=== PATIENT | male | born 1975 | race Two or more races ===

== ENCOUNTER 2024-10-23 11:13 | Inpatient (IN) | payer OTHER ==
[~2024-10-23] VITALS: Ht 167.6 cm; Wt 67.0 kg
--- NOTE | 2024-10-23 11:30 | ED.PDOC ---
GI ASSESSMENT HPI Comments This is a 49 year old male presenting to the ED with chief complaint of hernia pain. Patient reports that he has been experiencing worsening pain and swelling to a hernia he has in his right groin. Patient relays that it has become hard recently over the past few days. Patient notes he has no PCP at this time. Patient denies any dysuria, hematuria, N/V/D, fever, or chills. Time Seen by MD: 11:29 Reviewed Notes: Nurses Notes, Medications, Allergies Allergies: Coded Allergies: NO KNOWN ALLERGIES (Unverified , 10/23/24) Information Source: Patient Mode of Arrival: Ambulatory Timing: Days Duration: Intermittent Prehospital treatment: None Quality: Sharp Vomitus: None Stool: Normal Severity: Moderate Recent: None Recent Hx of: None Pain Location: None Modifying Factors: Nothing Associated sign and symptoms: Abdominal Pain Past Medical History Past Medical History (Other): Rt inguinal hernia Surgical History: Denies all surgeries Family History Family History: Reviewed,noncontributory to illness Social History Smoker: Cigarettes Alcohol: Denies ETOH Use Drugs: Denies Drug Use Lives In: Home Constitutional: denies: chills, diaphoresis, fatigue, fever, malaise, sweats, weakness, others EENTM: denies: blurred vision, double vision, ear bleeding, ear discharge, ear drainage, ear pain, ear ringing, eye pain, eye redness, hearing loss, mouth pain, mouth swelling, nasal discharge, nose bleeding, nose congestion, nose pain, photophobia, tearing, throat pain, throat swelling, voice changes, others Respiratory: denies: cough, hemoptysis, orthopnea, SOB at rest, shortness of breath, SOB with excertion, stridor, wheezing, others Cardiovascular: denies: chest pain, dizzy spells, diaphoresis, Dyspnea on exertion, edema, irregular heart beat, left arm pain, lightheadedness, palpitations, PND, syncope, others Gastrointestinal: reports: abdominal pain; denies: abdomen distended, blood streaked bowels, constipated, diarrhea, dysphagia, difficulty swallowing, hematemesis, melena, nausea, poor appetite, poor fluid intake, rectal bleeding, rectal pain, vomiting, others Genitourinary: denies: burning, dysuria, flank pain, frequency, hematuria, incontinence, penile discharge, penile sore, pain, testicle pain, testicle swelling, urgency, others Neurological: denies: dizziness, fainting, headache, left sided numbness, left sided weakness, numbness, paresthesia, pre-existing deficit, right sided numb ness, right sided weakness, seizure, speech problems, tingling, tremors, weakness, others Musculoskeletal: denies: back pain, gout, joint pain, joint swelling, muscle pain, muscle stiffness, neck pain, others Integumetry: denies: bruises, change in color, change in hair/nails, dryness, laceration, lesions, lumps, rash, wounds, others Allergic/Immunocompromised: denies: Difficulty Healing, Frequent Infections, Hives, Itching, others Hematologic/Lymphatic: denies: anemia, blood clots, easy bleeding, easy bruising, swollen glands, others Endocrine: denies: excessive hunger, excessive sweating, excessive thirst, excessive urination, flushing, intolerance to cold, intolerance to heat, unexplained weight gain, unexplained weight loss, others Psychiatric: denies: anxiety, bipolar disorder, depression, hopeless, panic disorder, schizophrenia, sleepless, suicidal, others All Other Systems: Reviewed and Negative Physical Exam General Appearance: Moderate Distress, Normal HEENT: Normal ENT Inspection, Pharynx Normal, TMs Normal Neck: Full Range of Motion, Non-Tender, Normal, Normal Inspection Respiratory: Chest Non-Tender, Lungs Clear, No Accessory Muscle Use, No Respiratory Distress, Normal Breath Sounds Cardiovascular: No Edema, No JVD, No Murmur, No Gallop, Normal Peripheral Pulses, Regular Rate/Rhythm Breast Exam: Deferred Gastrointestinal: No Organomegaly, Non Tender, No Pulsatile Mass, Normal Bowel Sounds, Soft Genitalia: Other (Right inguinal hernia possible strangulation) Pelvic: Deferred Rectal: Deferred Extremities: No calf tenderness, Normal capillary refill, Normal inspection, Normal range of motion, Non-tender, No pedal edema Musculoskeletal : Apperance: Normal Neurologic: Alert, 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 Was a procedure done?: No GI differential Dx Differential Diagnosis: Constipation, Diverticular disease, Esophagitis, Gastritis/PUD, Gastroenteritis, Hernia X-Ray, Labs, Meds, VS Vital Signs Date Time Temp Pulse Resp B/P (MAP) Pulse Ox O2 Delivery O2 Flow Rate FiO2 10/23/24 12:05 97.7 108 18 123/82 (96) [address] Abd/Pel: FINDINGS: There is limited interpretation of the abdomen and pelvis without administration of intravenous contrast. Lung bases demonstrate atelectasis. Adrenal glands, spleen, pancreas and liver unremarkable in shape. No CT evidence for cholelithiasis. No hydronephrosis / nephrolithiasis. Stomach partially distended. Moderate volume stool in the colon. There is a right inguinal region hernia containing bowel that is abnormally dilated with Fecal like contents measuring 9.7 x 6.1 cm. This likely represents the cecum/terminal ileum. There is bowel wall thickening with surrounding edema in the right inguinal hernia. The neck of the hernia measures 1.8 cm. There is free fluid in the right abdomen/ right paracolic gutter. The appendix is not well characterized. Bladder contracted. No inguinal lymphadenopathy. Mild bilateral sacroiliac degenerative joint disease. No aggressive osseous process. [id number] thoracolumbar degenerative disc disease. Thoracolumbar levocurvature. IMPRESSION: Limited evaluation without contrast. Right inguinal hernia containing a trapped segment of bowel measuring 9.7 x 6.1 cm , highly concerning for incarceration/strangulation. Recommend surgical consultation for further evaluation and management. Free fluid within the right abdomen/paracolic gutter, likely reactive to the secondary right inguinal hernia. Other findings as described. Patient alert. Complaining of right inguinal swelling. On examination suspected strangulation of inguinal hernia. Vitals stable. CT scan reviewed concerning for strangulation of inguinal hernia. Ambulating. Has not been taking care of himself. Establish intravenous access. Was given fluids. Was given Rocephin. Was given Flagyl. Explained to the patient. Continue monitoring. Images Reviewed?: Images reviewed and evaluated by me Time of 1ST Reevaluation: 12:28 Reevaluation 1ST: Unchanged Patient Education/Counseling: Diagnosis, Treatment Family Education/Counseling: No Family Present Additional Information Previous visits reviewed: None The following tests were ordered, and results were reviewed by me: CT Abd/Pel Additional Information was gathered from interviewing the following independent historians: None I reviewed and agreed with the following test results read by other providers: CT Abd/Pel I discussed treatment and results with medical personnel and: patient Comprehensive systems review obtained and negative except for what is stated in the HPI. SEPSIS Sepsis Screen Physician Orders Ct Ab Pel Wo Con-No Oral Or Iv (10/23/24 11:27) Complete Blood Count (10/23/24 13:29) Urinalysis (10/23/24 13:29) PTPTT (10/23/24 13:29) Basic Metabolic Panel (10/23/24 13:29) Ceftriaxone Ivpb Rocephin (10/23/24 13:30) Metronidazole Ivpb Flagyl (10/23/24 13:30) 1 Liter Bolus Of 0.9% Ns (10/23/24 13:30) 0.9% Ns 30mls/Kg (10/23/24 13:30) * Surgical Consult (10/23/24 ) Vital Signs Date Time Temp Pulse Resp B/P (MAP) Pulse Ox O2 Delivery O2 Flow Rate FiO2 10/23/24 12:05 97.7 108 18 123/82 (96) 99 97.7 Departure 1 Departure Time of Disposition: 13:33 Impression: Primary Impression: Acute abdominal pain Additional Impression: Strangulated internal hernia Disposition: ADMITTED INPATIENT Admit to: Med Surg Condition: Guarded Critical Care Note Critical Care Time?: No Stability Stability form required: No Heart Score Heart Score: Heart Score Response (Comments) Value History N/A 0 EKG N/A 0 Age N/A 0 Risk Factors N/A 0 Troponin N/A 0 Total 0 I personally scribed for JOCELYN MARTINEZ MD ([email or web address]) on 10/23/24 at 11:30. Electronically submitted by Bashir Bran ([email or web address]). I personally scribed for JOCELYN MARTINEZ MD ([email or web address]) on 10/23/24 at 13:30. Electronically submitted by Bashir Bran ([email or web address]). JOCELYN MARTINEZ MD Oct 23, 2024 11:30
--- NOTE | 2024-10-23 12:04 | DVH ---
Indication: hernia Technique: CT axial images of the abdomen and pelvis are obtained without contrast. Coronal and sagit reed reformats were obtained. Radiation Dose Information: CTDI volume is 5.2 mGy. Dose-length product is 271 mGy*cm Comparison: None FINDINGS: There is limited interpretation of the abdomen and pelvis without administration of intravenous contr ast. Lung bases demonstrate atelectasis. Adrenal glands, spleen, pancreas and liver unremarkable in shape. No CT evidence for cholelithiasis. No hydronephrosis / nephrolithiasis. Stomach partially distended. Moderate volume stool in the colon. There is a right inguinal region hernia containing bowel that is abnormally dilated with Fecal like contents measuring 9.7 x 6.1 cm. This likely represents the cecum/ terminal ileum. There is bowel wall thickening with surrounding edema in the right inguinal hernia. The neck of the hernia measures 1.8 cm. There is free fluid in the right abdomen/ right paracolic gut ter. The appendix is not well characterized. Bladder contracted. No inguinal lymphadenopathy. Mild bilateral sacroiliac degenerative joint disease. No aggressive osseous process. [id number] thoracolumbar degenerative disc disease. Thoracolumbar levocurvature. IMPRESSION: Limited evaluation without contrast. Right inguinal hernia containing a trapped segment of bowel measuring 9.7 x 6.1 cm , highly concernin g for incarceration/strangulation. Recommend surgical consultation for further evaluation and manage ment. Free fluid within the right abdomen/paracolic gutter, likely reactive to the secondary right inguinal hernia. Other findings as described.
[2024-10-23] MEDS ORDERED: SODIUM CHLORIDE 0.9% 1,000 ML IV ONE (13:30)
[2024-10-23] MEDS: SODIUM CHLORIDE 0.9% 1,000 ML IV ONE (13:30)
[2024-10-23 14:10] LABS: Hematocrit 43.0 % (41.0-53.0); Hemoglobin 14.4 g/dL (13.5-17.5); Mean Corpuscular Hemoglobin 28.6 pg (28.0-32.0); Mean Corpuscular Volume 85.4 fL (80.0-100.0); Nucleated Red Blood Cells % 0.0 %
[2024-10-23 14:21] LABS: Chloride 103 mmol/L (98-107); Potassium 4.2 mmol/L (3.5-5.1); Sodium 140 mmol/L (136-145)
[2024-10-23 14:22] LABS: Anion Gap 7 (5-15); Carbon Dioxide 30 mmol/L (20-31)
[2024-10-23 14:23] LABS: Calcium 10.1 mg/dL (8.7-10.4)
[2024-10-23 14:24] LABS: INR 0.97 (0.9-1.15); Partial Thromboplastin Time 29.5 SEC (24.5-34.5); Prothrombin Time 10.3 sec (9.3-11.8)
[2024-10-23 14:28] LABS: BUN/Creatinine Ratio 21.3 (10.0-20.0); Blood Urea Nitrogen 20 mg/dL (9-23); Glucose 125 mg/dL (74-106)
[2024-10-23] MEDS: cefTRIAXone 1GM/50ML D5W 50 ML IV ONE (15:28)
[2024-10-23] MEDS: ONDANSETRON HCL 4 MG/2 ML VIAL IV ONE (15:28)
[2024-10-23] MEDS: MORPHINE SULFATE 4 MG/ML SYR/VIAL IV ONE (15:29)
[2024-10-23] MEDS ORDERED: ONDANSETRON HCL 4 MG/2 ML VIAL IV PRN (16:00)
[2024-10-23] MEDS ORDERED: ACETAMINOPHEN 325 MG TAB PO PRN (16:00)
[2024-10-23] MEDS ORDERED: D5W/SOD CHL 0.45% 1,000 ML IV ONE (16:00)
[2024-10-23] MEDS ORDERED: SOD CHL 0.45% 1,000 ML IV SCH (16:00)
[2024-10-23 16:12] LABS: Urine Protein, UAD TRACE (Negative)
[2024-10-23 16:14] LABS: Triglycerides 64 mg/dL (< 150)
[2024-10-23 16:15] LABS: Cholesterol 162 mg/dL (< 200); HDL Cholesterol 48 mg/dL (40-59)
[2024-10-23 16:16] LABS: Alanine Aminotransferase 13 U/L (7-40); Albumin 4.6 g/dL (3.2-4.8); Alkaline Phosphatase 69 U/L (46-116); Bilirubin, Direct < 0.1 mg/dL (<0.3)
--- NOTE | 2024-10-23 16:18 | DVHHPRES ---
History of Present Illness Resident Creating Document: KENDALL JAUREGUI History of Present Illness This is a 49-year-old male with no significant past medical history of relevance, only polysubstance abuse. The patient presented to the ED with chief complaint of acute abdominal pain and right inguinal pain. The patient reports having a right inguinal hernia since seven months back but that was reducible and not painful at all. The patient states that recently one day before coming to the ED he started feeling that the right inguinal hernia was not able to come in back to the abdomen (not reducible) and was significantly tender compared to previous days. The patient also reported redness and slightly warm sensation to the touch around the location of the hernia. The patient denies fever/chills, chest pain, shortness of breath or any other associated symptoms. Initial labs showed a slight leukocytosis with unremarkable BNP. We ordered urinalysis, UDS, EKG and surgical consultation. We will admit the patient for further assessment and management of incarcerated right inguinal hernia. 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 Past Surgical History: None Family History: None Smoke: <1 pack per day ALCOHOL: occassional Drugs: Cocaine, Marijuana Lives: with Family Domestic Violence: Neg Review of Systems Constitutional: No: Fever, Chills, Sweats, Weakness, Malaise, Other Eyes: No: Pain, Vision change, Conjunctivae inflammation, Eyelid inflammation, Other, Redness ENT: No: Ear pain, Ear discharge, Nose pain, Nose discharge, Nose congestion, Mouth pain, Mouth swelling, Throat pain, Throat swelling, Other Respiratory: No: Cough, Dry, Shortness of breath, SOB with excertion, Wheezing, Hemoptysis, Pleuritic Pain, Sputum, Wheezing, Other Cardiovascular: No: Chest Pain, Palpitations, Orthopnea, Paroxysmal Noc. Dyspnea, Edema, Lt Headedness, Other Gastrointestinal: Abdominal Pain, Other (Right inguinal pain.); No: Nausea, Vomiting, Diarrhea, Constipation, Melena, Hematochezia Genitourinary: No Dysuria, No Frequency, No Incontinence, No Hematuria, No Retention, No Other Musculoskeletal: No: other, neck pain, shoulder pain, arm pain, back pain, hand pain, leg pain, foot pain Skin: No: Rash, Lesions, Jaundice, Bruising, Other Neurological: No: Weakness, Numbness, Incoordination, Change in speech, Confusion, Seizures, Other Allergies: Coded Allergies: NO KNOWN ALLERGIES (Unverified , 10/23/24) Medications Current Medications Medications Dose Ordered Sig/Abilio Route Start Time Stop Time Status Last Admin Dose Admin Acetaminophen 650 mg Q6HP PRN PO 10/23/24 16:00 UNV Sodium Chloride 1,000 ml @ 75 mls/hr [id number] IV 10/23/24 16:00 UNV Acetaminophen/ Hydrocodone Bitart 1 tab Q4HP PRN PO 10/23/24 16:00 UNV Ondansetron HCl 4 mg Q4HP PRN IV 10/23/24 16:00 UNV Morphine Sulfate 1 mg Q4HPRN PRN IV 10/23/24 16:00 UNV Exam Vital Signs Vital Signs Date Time Temp Pulse Resp B/P (MAP) Pulse Ox O2 Delivery O2 Flow Rate FiO2 10/23/24 15:29 94 17 118/89 10/23/24 14:41 99 Room Air 10/23/24 14:39 97.9 97.9 General Appearance: Alert, Oriented X3, Cooperative, mild distress HEENT: Atraumatic, PERRLA, EOMI, Mucous membr. moist/pink Respiratory: Clear to auscultation, Normal air movement Cardiovascular: Regular rate, Normal S1, Normal S2, No murmurs Abdominal: Normal bowel sounds, Other (Tender to palpation in the right lower quadrant, hypogastric region and right inguinal area. There was an incarcerated right inguinal hernia extending to the scrotum with mild erythema and warm sensation to the touch.) Extremities: No clubbing, No cyanosis Skin: No rashes, No breakdown, No significant lesion Neuro: Normal gait, Normal speech, Strength at 5/5 X4 ext, Normal tone, Sensation intact, Cranial nerves 3-12 NL, Reflexes 2+ Psych/Mental Status: Mental status NL, Mood NL Labs/Xrays Labs Test 10/23/24 13:52 Range/Units White Blood Count 10.6 4.4-10.8 10^3/uL Red Blood Count 5.04 4.5-5.90 10^6/uL Hemoglobin 14.4 13.5-17.5 g/dL Hematocrit 43.0 41.0-53.0 % Mean Corpuscular Volume 85.4 80.0-100.0 fL Mean Corpuscular Hemoglobin 28.6 28.0-32.0 pg Mean Corpuscular Hemoglobin Concent 33.5 32.0-36.0 g/dL Red Cell Distribution Width 14.9 H 11.8-14.3 % Platelet Count 326 140-450 10^3/uL Mean Platelet Volume 7.1 6.9-10.8 fL Neutrophils (%) (Auto) 75.3 37.0-80.0 % Lymphocytes (%) (Auto) 17.2 10.0-50.0 % Monocytes (%) (Auto) 6.3 0.0-12.0 % Eosinophils (%) (Auto) 0.9 0.0-7.0 % Basophils (%) (Auto) 0.3 0.0-2.0 % Neutrophils # (Auto) 8.0 1.6-8.6 10 ^3/uL Lymphocytes # (Auto) 1.8 0.4-5.4 10 ^3/uL Monocytes # (Auto) 0.7 0-1.3 10 ^3/uL Eosinophils # (Auto) 0.1 0-0.8 10 ^3/uL Basophils # (Auto) 0 0-0.2 10 ^3/uL Nucleated Red Blood Cells 0.0 % Prothrombin Time 10.3 9.3-11.8 sec Prothrombin Time INR 0.97 0.9-1.15 Activated Partial Thromboplast Time 29.5 24.5-34.5 SEC Sodium Level 140 136-145 mmol/L Potassium Level 4.2 3.5-5.1 mmol/L Chloride Level 103 98-107 mmol/L Carbon Dioxide Level 30 20-31 mmol/L Anion Gap 7 5-15 Blood Urea Nitrogen 20 9-23 mg/dL Creatinine 0.94 0.700-1.30 mg/dL Glomerular Filtration Rate Calc 98 >90 mL/min BUN/Creatinine Ratio 21.3 H 10.0-20.0 Serum Glucose 125 H 74-106 mg/dL Calcium Level 10.1 8.7-10.4 mg/dL SEPSIS Sepsis Screen Date sepsis recognized/suspect: Oct 23, 2024 Time Sepsis recognized/suspect: 1205 Recent Procedure: No On Antibiotic Therapy: No Respiratory Rate >20: No Heart Rate >90: Yes Temp<36 C (96.8 F) or >38.3 C: No SBP <90 or MAP <65 mmHG: No New Acute Mental Status Change: No Is the patient on CPAP, BIPAP,: No Physician Orders Ct Ab Pel Wo Con-No Oral Or Iv (10/23/24 11:27) Urinalysis (10/23/24 13:29) Sodium Chloride 0.9% (10/23/24 13:30) * Surgical Consult (10/23/24 ) Admit (10/23/24 15:46) Code Status (10/23/24 15:46) Vital Signs .PER UNIT PROTOCOL (10/23/24 15:46) Review Orders With Adm.Md (10/23/24 15:46) Maintain Bed Rest (10/23/24 15:46) Npo (Nothing By Mouth) Diet (10/23/24 Dinner) Acetaminophen Tablet (Tylenol Tablet) (10/23/24 16:00) Notify Md Of Changes From Base (10/23/24 15:46) Advance Directive (10/23/24 15:46) Basic Metabolic Panel (10/24/24 04:00) Urinalysis (10/23/24 15:46) Complete Blood Count (10/24/24 04:00) Lipid Panel (10/23/24 15:46) Patient Condition (10/23/24 15:46) Allergies (10/23/24 15:46) Hydrocodone-Acet 5/325mg Tab ([place] 5/32 (10/23/24 16:00) Ondansetron Hcl (Zofran) (10/23/24 16:00) Drug Screen (10/23/24 15:46) Hemoglobin A1c (10/23/24 15:46) Morphine Sulfate Injection (10/23/24 16:00) Lactic Acid W/ Reflex Order (10/23/24 15:53) Hepatic Panel (10/23/24 15:53) Electrocardigram (10/23/24 15:53) D5w/Sod Chl 0.45% (D5w 1/2ns) (10/23/24 16:00) Chest Xray 1 View (10/23/24 15:56) Vital Signs Date Time Temp Pulse Resp B/P (MAP) Pulse Ox O2 Delivery O2 Flow Rate FiO2 10/23/24 15:29 94 17 118/89 10/23/24 14:41 56 20 99 Room Air 10/23/24 14:39 97.9 56 20 97/59 (72) 99 97.9 10/23/24 13:59 98.1 103 16 114/73 (87) 100 98.1 10/23/24 12:05 97.7 108 18 123/82 (96) 99 97.7 Laboratory Tests Test 10/23/24 13:52 White Blood Count 10.6 10^3/uL (4.4-10.8) Medications Medications Dose Ordered Sig/Abilio Route Start Time Stop Time Status Last Admin Dose Admin Ceftriaxone Sodium 50 ml @ 100 mls/hr ONCE ONCE IV 10/23/24 13:30 10/23/24 13:59 DC 10/23/24 15:28 100 MLS/HR Morphine Sulfate 4 mg ONCE ONCE IV 10/23/24 15:00 10/23/24 15:01 DC 10/23/24 15:29 4 MG Ondansetron HCl 4 mg ONCE ONCE IV 10/23/24 15:00 10/23/24 15:02 DC 10/23/24 15:28 4 MG Sodium Chloride 1,000 ml @ 1,000 mls/hr Q1H ONCE IV 10/23/24 13:30 10/23/24 14:29 DC 10/23/24 13:30 1,000 MLS/HR Assessment/Plan Assessment/Plan Assessment/plan Acute abdominal pain/right inguinal likely due to incarcerated right inguinal hernia -CT of the abdomen and pelvis showed Right inguinal hernia containing a trapped segment of bowel measuring 9.7 x 6.1 cm , highly concerning for incarceration/strangulation. -on physical examination right inguinal hernia was not reducible, extremely painful to palpation likely incarcerated -place patient NPO -IV fluids D5W/0.45% at 75 cc/hour -surgical consult placed, awaiting surgical evaluation -pain medications, [place], morphine p.r.n. 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 Wallace Plan discussed with: Patient My Orders Orders - KENDALL JAUREGUI Procedure Category Date Status Time Admit ADMIT 10/23/24 Transmitted 15:46 Code Status CODE 10/23/24 Transmitted 15:46 Vital Signs [facility] 10/23/24 In Process 15:46 Review Orders With [facility] 10/23/24 In Process Adm.Md 15:46 Maintain Bed Rest [facility] 10/23/24 In Process 15:46 Npo (Nothing By DIET 10/23/24 Transmitted Mouth) Diet Dinner Acetaminophen Tablet [facility] 10/23/24 Logged (Tylenol Tablet) 16:00 Notify Md Of Changes [facility] 10/23/24 In Process From Base 15:46 Advance Directive [facility] 10/23/24 In Process 15:46 Basic Metabolic Panel LAB 10/24/24 Verified 04:00 Urinalysis LAB 10/23/24 Logged 15:46 Complete Blood Count LAB 10/24/24 Verified 04:00 Lipid Panel LAB 10/23/24 Logged 15:46 Patient Condition ORDERS 10/23/24 Transmitted 15:46 Allergies [facility] 10/23/24 In Process 15:46 Hydrocodone-Acet PHA 10/23/24 Logged 5/325mg Tab ([place] 16:00 Ondansetron Hcl PHA 10/23/24 Logged (Zofran) 16:00 Drug Screen LAB 10/23/24 Logged 15:46 Hemoglobin A1c LAB 10/23/24 Logged 15:46 Morphine Sulfate PHA 10/23/24 Logged Injection 16:00 Lactic Acid W/ Reflex LAB 10/23/24 Logged Order 15:53 Hepatic Panel LAB 10/23/24 Logged 15:53 Electrocardigram EKG 10/23/24 Logged 15:53 D5w/Sod Chl 0.45% PHA 10/23/24 Logged (D5w 1/2ns) 16:00 Chest Xray 1 View XY 10/23/24 Logged 15:56 Date of Service: Oct 23, 2024 Billing Provider: BURTON CASPER MD Common Visit Codes: 71499-[id number] INP/OBS CARE (HIGH) Secondary Visit Codes: [id number]-[id number] CARE PLAN 30 MINUTES KENDALL JAUREGUI Oct 23, 2024 16:18 BURTON CASPER MD Oct 28, 2024 22:13
[2024-10-23 16:19] LABS: Total Protein 7.5 g/dL (5.7-8.2)
[2024-10-23 16:21] LABS: Bilirubin, Total 0.3 mg/dL (0.2-1.0)
--- NOTE | 2024-10-23 16:27 | DVH ---
CHEST RADIOGRAPH Indication: eval pulm parenchyma Technique: Single frontal view of the chest was obtained COMPARISON: None FINDINGS: Lines and Tubes: None Lungs: Clear Pleura: No effusion. No pneumothorax. Cardiomediastinal contours: Unremarkable Bones: Unremarkable IMPRESSION: No acute disease.
[2024-10-23 16:34] LABS: Amphetamine Screen, Urine Neg (NEGATIVE); Barbiturate Scree,Urine Neg (NEGATIVE); Benzodiazephine Screen, Urine Neg (NEGATIVE); Cocaine Screen, Urine Neg (NEGATIVE)
[2024-10-23 16:35] LABS: Cannabinoid Screen, Urine Neg (NEGATIVE); Opiate Scree,Urine Neg (NEGATIVE); Phencyclidine Screen, Urine Neg (NEGATIVE)
[2024-10-23 17:18] VITALS: BP 124/79; PULSE 78; TEMP 98.6; O2SAT 98
[2024-10-23 17:24] VITALS: BP 124/79; PULSE 92; RESP 16; TEMP 98.4; O2SAT 98
--- NOTE | 2024-10-23 17:42 | DVHINCON2 ---
Date of service: Oct 23, 2024 History of Present Illness 49-year-old male with a history of right inguinal hernia that was able to be reduced in the past however starting yesterday patient reported worsening pain at the site and was unable to push it back in. Patient denies any fevers, nausea or vomiting. Past Medical History Polysubstance abuse Past Surgical History None Family History Noncontributory Social History Smokes tobacco and marijuana. Also those cocaine. Occasional alcohol. Allergies: Coded Allergies: NO KNOWN ALLERGIES (Unverified , 10/23/24) Current Medications Current Medications Medications (Trade) Dose Ordered Sig/Abilio Route PRN Reason Start Time Stop Time Status Last Admin Acetaminophen (Tylenol Tablet) 650 mg Q6HP PRN PO PAIN SCALE 1-3 OR TEMP>100.4 10/23/24 16:00 Sodium Chloride 1,000 ml @ 75 mls/hr [id number] IV 10/23/24 16:00 10/23/24 15:56 DC Acetaminophen/ Hydrocodone Bitart ([place] 5/325MG Tab) 1 tab Q4HP PRN PO MODERATE PAIN (4-6 PAIN SCALE) 10/23/24 16:00 Ondansetron HCl (Zofran) 4 mg Q4HP PRN IV NAUSEA / VOMITING 10/23/24 16:00 Morphine Sulfate 1 mg Q4HPRN PRN IV SEVERE PAIN (7-10 PAIN SCALE) 10/23/24 16:00 Vital Signs Vital Signs Date Time Temp Pulse Resp B/P (MAP) Pulse Ox O2 Delivery O2 Flow Rate FiO2 10/23/24 17:24 98.4 92 16 124/79 (94) 98 98.4 10/23/24 17:18 Room Air* 0 21 Physical Exam GEN: Age-appropriate male in no acute distress. Alert. HEENT: Normocephalic atraumatic. Moist mucous membranes. Anicteric sclerae. CV: RRR Respiratory: CTAB ABD: Soft. Nontender nondistended. There is a sliding right inguinal hernia into his scrotum that is incarcerated with tenderness to palpation. Unable to be reduced. CT of the abdomen and pelvis: Right inguinal hernia containing trapped segment of bowel measuring 9.7 x 6.1 cm ID concerning for incarceration/strangulation. Labs/Diagnostic Data Labs Test 10/23/24 16:10 10/23/24 14:28 10/23/24 13:52 Range/Units Lactic Acid Level 1.4 0.4-2.0 mmol/L Urine Color Yellow Yellow Urine Clarity Clear Clear Urine pH 5.5 5.0-9.0 Urine Specific [place] 1.031 1.001-1.035 Urine Protein Trace H Negative Urine Ketones Trace Negative Urine Blood Negative Negative /uL Urine Nitrite Negative Negative Urine Bilirubin Negative Negative Urine Urobilinogen Normal Negative mg/dL Urine Leukocyte Esterase Negative Negative /uL Urine RBC 5 0 - 3 /hpf Urine Microscopic WBC 2 0-3 /HPF Urine Squamous Epithelial Cells None seen <5 /hpf Urine Bacteria None seen None Seen /hpf Urine Hyaline Casts Few 0 - 2 /lpf Urine Mucus Few None Seen Urine Glucose Normal Normal mg/dL Urine Opiates Screen Neg NEGATIVE Urine Fentanyl Screen Neg NEGATIVE Urine Barbiturates Screen Neg NEGATIVE Urine Phencyclidine Screen Neg NEGATIVE Urine Amphetamines Screen Neg NEGATIVE Urine Benzodiazepines Screen Neg NEGATIVE Urine Cocaine Screen Neg NEGATIVE Urine Cannabinoids Screen Neg NEGATIVE White Blood Count 10.6 4.4-10.8 10^3/uL Red Blood Count 5.04 4.5-5.90 10^6/uL Hemoglobin 14.4 13.5-17.5 g/dL Hematocrit 43.0 41.0-53.0 % Mean Corpuscular Volume 85.4 80.0-100.0 fL Mean Corpuscular Hemoglobin 28.6 28.0-32.0 pg Mean Corpuscular Hemoglobin Concent 33.5 32.0-36.0 g/dL Red Cell Distribution Width 14.9 H 11.8-14.3 % Platelet Count 326 140-450 10^3/uL Mean Platelet Volume 7.1 6.9-10.8 fL Neutrophils (%) (Auto) 75.3 37.0-80.0 % Lymphocytes (%) (Auto) 17.2 10.0-50.0 % Monocytes (%) (Auto) 6.3 0.0-12.0 % Eosinophils (%) (Auto) 0.9 0.0-7.0 % Basophils (%) (Auto) 0.3 0.0-2.0 % Neutrophils # (Auto) 8.0 1.6-8.6 10 ^3/uL Lymphocytes # (Auto) 1.8 0.4-5.4 10 ^3/uL Monocytes # (Auto) 0.7 0-1.3 10 ^3/uL Eosinophils # (Auto) 0.1 0-0.8 10 ^3/uL Basophils # (Auto) 0 0-0.2 10 ^3/uL Nucleated Red Blood Cells 0.0 % Prothrombin Time 10.3 9.3-11.8 sec Prothrombin Time INR 0.97 0.9-1.15 Activated Partial Thromboplast Time 29.5 24.5-34.5 SEC Sodium Level 140 136-145 mmol/L Potassium Level 4.2 3.5-5.1 mmol/L Chloride Level 103 98-107 mmol/L Carbon Dioxide Level 30 20-31 mmol/L Anion Gap 7 5-15 Blood Urea Nitrogen 20 9-23 mg/dL Creatinine 0.94 0.700-1.30 mg/dL Glomerular Filtration Rate Calc 98 >90 mL/min BUN/Creatinine Ratio 21.3 H 10.0-20.0 Serum Glucose 125 H 74-106 mg/dL Hemoglobin A1c 5.7 <5.7 % A1C Calcium Level 10.1 8.7-10.4 mg/dL Total Bilirubin 0.3 0.2-1.0 mg/dL Direct Bilirubin < 0.1 <0.3 mg/dL Aspartate Amino Transferase (AST) 25 13-40 U/L Alanine Aminotransferase (ALT) 13 7-40 U/L Alkaline Phosphatase 69 46-116 U/L Total Protein 7.5 5.7-8.2 g/dL Albumin 4.6 3.2-4.8 g/dL Triglycerides Level 64 < 150 mg/dL Cholesterol Level 162 < 200 mg/dL LDL Cholesterol 94 < 100 mg/dL HDL Cholesterol 48 40-59 mg/dL Assessment 1. Incarcerated right inguinal hernia with possible strangulation of bowel. Plan/Recommendation 1. Right inguinal hernia repair with mesh with possible bowel resection. Informed consent: The surgery and its risks including but not limited to infection, bleeding requiring possible blood transfusion with the risk of hepatitis or HIV infection, possible hernia recurrence which is higher in this case as patient is a smoker, possible bowel resection with anastomosis which may lead to possible leak, possible ischemic orchitis, possible perioperative OK or CVA were explained to the patient. All questions were answered to his satisfaction. He expressed verbal understanding and wished to proceed with the surgery. Plan discussed with: Patient JAN GUTIERREZ MD Oct 23, 2024 17:42
[2024-10-23] MEDS: ceFAZolin 2 GM/D5W50ml 50 ML IV ONE (17:59)
[2024-10-23] MEDS: GABAPENTIN 300 MG CAP PO ONE (18:00)
[2024-10-23] MEDS: CELECOXIB 100 MG CAP PO ONE (18:00)
[2024-10-23] MEDS ORDERED: ACETAMINOPHEN IV 1000 MG/100ML (10MG/ML) IV ONE (18:00)
[2024-10-23] MEDS: MORPHINE SULFATE INJ 2 MG/ml SYRG IV PRN (19:54)
[2024-10-23 20:00] VITALS: PULSE 98; RESP 18; O2SAT 98
[2024-10-23 21:00] VITALS: BP 108/82; PULSE 98; RESP 18; TEMP 99.2; O2SAT 98
[2024-10-24] VITALS (8 sets, daily range): BP systolic 106–129; BP diastolic 72–90; PULSE 77–110; RESP 14–18; TEMP 97.4–98.6; O2SAT 92–99
[2024-10-24] MEDS: D5W/SOD CHL 0.45% 1,000 ML IV SCH (06:53)
[2024-10-24 08:22] LABS: Hematocrit 40.1 % (41.0-53.0); Hemoglobin 13.5 g/dL (13.5-17.5); Mean Corpuscular Hemoglobin 28.8 pg (28.0-32.0); Mean Corpuscular Volume 85.4 fL (80.0-100.0); Nucleated Red Blood Cells % 0.0 %
[2024-10-24 08:41] LABS: Anion Gap 9 (5-15); Carbon Dioxide 26 mmol/L (20-31); Chloride 106 mmol/L (98-107); Potassium 4.0 mmol/L (3.5-5.1); Sodium 141 mmol/L (136-145)
[2024-10-24 08:42] LABS: Calcium 9.8 mg/dL (8.7-10.4)
[2024-10-24 08:46] LABS: Glucose 86 mg/dL (74-106)
[2024-10-24 08:47] LABS: BUN/Creatinine Ratio 19.5 (10.0-20.0); Blood Urea Nitrogen 17 mg/dL (9-23)
--- NOTE | 2024-10-24 09:50 | DVHPNRES ---
Progress Note Date Seen: Oct 24, 2024 Resident Creating Document: TANIYA NICOLE RESIDENT Has the PT tested + for MRSA If YES, has PT been informed?: No Medical Necessity Reason Pt with a Central, PICC or Fol: No Subjective Review of Systems This is a 49-year-old male with no significant past medical history of relevance, only polysubstance abuse. The patient presented to the ED with chief complaint of acute abdominal pain and right inguinal pain. The patient reports having a right inguinal hernia since seven months back but that was reducible and not painful at all. The patient states that recently one day before coming to the ED he started feeling that the right inguinal hernia was not able to come in back to the abdomen (not reducible) and was significantly tender compared to previous days. The patient also reported redness and slightly warm sensation to the touch around the location of the hernia. The patient denies fever/chills, chest pain, shortness of breath or any other associated symptoms. Initial labs showed a slight leukocytosis with unremarkable BNP. We ordered urinalysis, UDS, EKG and surgical consultation. We will admit the patient for further assessment and management of incarcerated right inguinal hernia. 10/24/24: Today. the patient was examined at bedside, he reports the pain has reduced with the analgesics /10. He denies nausea, diarrhea, vomit, fever or other complains. Vital signs and laboratories were within normal limits. Surgery is on board, they planned surgical repair with mesh. Patient is NPO and awaiting for the surgery. We will follow up the progress of this patient. ROS Constitutional: No: Fever, Chills, Sweats, Weakness, Malaise, Other Eyes: No: Pain, Vision change, Conjunctivae inflammation, Eyelid inflammation, Other, Redness ENT: No: Ear pain, Ear discharge, Nose pain, Nose discharge, Nose congestion, Mouth pain, Mouth swelling, Throat pain, Throat swelling, Other Respiratory: No: Cough, Dry, Shortness of breath, SOB with excertion, Wheezing, Hemoptysis, Pleuritic Pain, Sputum, Wheezing, Other Cardiovascular: No: Chest Pain, Palpitations, Orthopnea, Paroxysmal Noc. Dyspnea, Edema, Lt Headedness, Other Gastrointestinal: Abdominal Pain in the right inguinal area. No: Nausea, Vomiting, Diarrhea, Constipation, Melena, Hematochezia Genitourinary: Scrotal pressure. No Dysuria, No Frequency, No Incontinence, No Hematuria, No Retention, No Other Musculoskeletal: No: other, neck pain, shoulder pain, arm pain, back pain, hand pain, leg pain, foot pain Skin: No: Rash, Lesions, Jaundice, Bruising, Other Neurological: No: Weakness, Numbness, Incoordination, Change in speech, Confusion, Seizures, Other Allergies: NO KNOWN ALLERGIES (Unverified , 10/23/24) Objective vital signs Vital Sign Date Time Temp Pulse Resp B/P (MAP) Pulse Ox O2 Delivery O2 Flow Rate FiO2 10/24/24 08:39 98.6 94 14 125/84 (98) 99 98.6 10/24/24 08:00 Room Air* 0 21 Total Intake and Output 10/23/24 10/23/24 10/24/24 15:00 23:00 07:00 Intake Total 300 ml Balance 300 ml medications Current Medications Medications Dose Ordered Sig/Abilio Route Start Time Stop Time Status Last Admin Dose Admin Acetaminophen 650 mg Q6HP PRN PO 10/23/24 16:00 Acetaminophen/ Hydrocodone Bitart 1 tab Q4HP PRN PO 10/23/24 16:00 Ondansetron HCl 4 mg Q4HP PRN IV 10/23/24 16:00 Morphine Sulfate 1 mg Q4HPRN PRN IV 10/23/24 16:00 10/23/24 19:54 1 MG Ceftriaxone Sodium 50 ml @ 100 mls/hr Q24H IV 10/24/24 15:00 Metronidazole 100 ml @ 100 mls/hr Q8H IV 10/24/24 07:00 10/24/24 06:54 100 MLS/HR Pantoprazole Sodium 40 mg DAILY IV 10/24/24 10:00 Dextrose/Sodium Chloride 1,000 ml @ 75 mls/hr [id number] IV 10/24/24 06:45 10/24/24 06:53 75 MLS/HR Examination General Appearance: Alert, Oriented X3, Cooperative, mild distress HEENT: Atraumatic, PERRLA, EOMI, Mucous membr. moist/pink Respiratory: Clear to auscultation, Normal air movement Cardiovascular: Regular rate, Normal S1, Normal S2, No murmurs Abdominal: Normal bowel sounds, tender to palpation in the right lower quadrant, hypogastric region and right inguinal area. There is an incarcerated right inguinal hernia extending to the scrotum with mild erythema and warm sensation to the touch. Extremities: No clubbing, No cyanosis Skin: No rashes, No breakdown, No significant lesion Neuro: Normal gait, Normal speech, Strength at 5/5 X4 ext, Normal tone, Sensation intact, Cranial nerves 3-12 NL, Reflexes 2+ Psych/Mental Status: Mental status NL, Mood NL laboratory and microbiology Laboratory Tests 10/24/24 05:35 Test 10/24/24 05:35 Range/Units Serum Glucose 86 74-106 mg/dL Problem List/Assessment/Plan Problem List/Assessment/Plan #Acute abdominal pain/right inguinal likely due to incarcerated right inguinal hernia -CT of the abdomen and pelvis showed Right inguinal hernia containing a trapped segment of bowel measuring 9.7 x 6.1 cm , highly concerning for incarceration/strangulation. -on physical examination right inguinal hernia was not reducible, extremely painful to palpation likely incarcerated -place patient NPO -IV fluids D5W/0.45% at 75 cc/hour -surgical consult placed, awaiting surgical evaluation -pain medications, Sl[place], morphine p.r.n. -ordered lactic acid -ordered EKG -ordered chest x-ray NPO Surgery: Right inguinal hernia with mesh repair. #Polysubstance abuse -ordered UDS -ordered UA -Counseling, provide resources for assist quitting. 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 Goals of care discussed with the patient at bedside for >35min, full code Plan discussed with Code status: Full code PCP: not established. Patient will go to the discharge clinic. Plan discussed with: Patient, patients agrees with the plan. Plan discussed with: Patient My Orders My Orders Orders - TANIYA NICOLE RESIDENT Procedure Category Date Status Time D5w/Sod Chl 0.45% PHA 10/24/24 In Process (D5w 1/2ns) 06:45 Date of Service: Oct 24, 2024 Billing Provider: BURTON CASPER MD Common Visit Codes: [id number] INP/OBS CARE(HIGH) TANIYA NICOLE Oct 24, 2024 09:50 BURTON CASPER MD Oct 28, 2024 01:43
[2024-10-24] MEDS: PANTOPRAZOLE 40 MG/10 ML VIAL INJ IV SCH (10:01)
[2024-10-24] MEDS: ceFAZolin 2 GM/D5W50ml 50 ML IV ONE (11:08)
[2024-10-24] MEDS ORDERED: fentaNYL CITRATE 100 MCG/2 ML VL ONE ×2 (12:44→13:35)
[2024-10-24] MEDS ORDERED: MIDAZOLAM HCL 2MG/2ML 2ml VIAL (1mg/ml) ONE (12:44)
[2024-10-24] MEDS ORDERED: KETAMINE 50mg/ML 1ml syringe ONE (12:46)
[2024-10-24] MEDS: ceFAZolin 1GM VL ONE (13:06)
[2024-10-24] MEDS: LIDOCAINE 1%-Mpf/Epinephrine 1:200,000 30ml VIAL ONE (13:06)
--- NOTE | 2024-10-24 14:28 | DVHOP2 ---
Operative Report - 2 Report Details Date: 10/24/24 Preop Diagnosis: Incarcerated right inguinal hernia Postop Diagnosis: Same Surgeon: Jan Beach MD Clinical Trial Data Manager: None Anesthesiologist: Radha Ortega CRNA Anesthesia: General, Local Consent: The surgery and its risks including but not limited to infection, bleeding requiring possible blood transfusion with the risk of hepatitis or HIV infection, possible perioperative [place] or stroke, possible ischemic orchitis, possible hernia recurrence, possible postoperative neuralgia were explained to the patient. All questions were answered to his satisfaction. He expressed verbal understanding and wished to proceed with the surgery. Complications: None Estimated Blood Loss: 30 mL Fluids: 2 L Name of Procedure Performed Right inguinal hernia repair with mesh Procedure Details Procedure Details: After induction of general anesthesia, patient's right inguinal region was prepped and draped in standard surgical fashion. With the induction of anesthesia his incarcerated portion of the hernia reduced spontaneously. Approximately 10 mL of 1% lidocaine with epinephrine was used as local anesthesia. An oblique incision was made in the right inguinal region and excision extended through the soft tissues. The superficial branch of the inferior epigastric vessel was cauterized and divided without complication. Incision extended down to the external oblique fascia which was cleared anteriorly. A small incision was made in the external oblique fascia which was then extended along the direction of its fibers towards the external ring rev ealing the cord structures. The ilioinguinal nerve was gently dissected off the cord structures and retracted out of the surgical field. There was quite a bit of indurated tissue with chronic inflammation in the area. The indirect hernia sac was identified but there was quite thickened and inflamed. Opening was made which helped to delineate the edge of the hernia sac. The cord structures including the vas deferens was identified and isolated using a Jason drain. Due to the extensive amount of chronic inflammation in this area and the loss of usual normal dissecting planes of the tissues, I opted to leave the distal portion of the hernia sac within the scrotum as trying to remove this would have caused more bleeding and possible injury. The proximal ends of the indirect hernia sac was suture ligated using 0 Vicryl sutures. A [employer] ProGrip mesh was used for the repair. It was cut to appropriate size to better fit the base of the inguinal floor and the medial portion of the mesh secured to the pubic tubercle using 2-0 Vicryl sutures. The mesh was wrapped around the cord structures without strangulation and the tail was then tucked underneath the external oblique fascia laterally. The ilioinguinal nerve was placed back into its usual position. Surgical site was irrigated with Ancef irrigation and external oblique fascia was then closed over the repair using running 2-0 Vicryl sutures. Jayjay's fascia was reapproximated using interrupted 2-0 Vicryl sutures. Skin incision was then closed using daniel. Surgical site was cleaned and dried dressings were applied. Sponge, needle, instrument count at the end of the case were reported to be correct by the nursing staff. The patient tolerated procedure well. I verified at the end of surgery the patient's right testis was in its normal descended position. Patient was extubated and transferred to recovery in stable condition. Specimen: None Condition Stable Disposition Still a Patient (I did I put in for liquid yes thank you but just in case it does not go through yes) JAN BEACH MD Oct 24, 2024 14:28
[2024-10-24] MEDS: HYDROmorphone HCL 2 MG/ML VL/or syr IV ONE (14:44)
[2024-10-24] MEDS: HYDROcodone-ACET 5/325MG TAB PO PRN (14:51)
[2024-10-24] MEDS: HYDROmorphone HCL 2 MG/ML VL/or syr ONE (14:56)
[2024-10-24] MEDS: cefTRIAXone 1GM/50ML D5W 50 ML IV SCH (15:00)
[2024-10-25] VITALS (8 sets, daily range): BP systolic 108–135; BP diastolic 71–90; PULSE 80–94; RESP 16–18; TEMP 97.6–98.5; O2SAT 93–99
[2024-10-25 05:59] LABS: Hematocrit 36.1 % (41.0-53.0); Hemoglobin 12.0 g/dL (13.5-17.5); Mean Corpuscular Hemoglobin 28.3 pg (28.0-32.0); Mean Corpuscular Volume 85.4 fL (80.0-100.0); Nucleated Red Blood Cells % 0.0 %
[2024-10-25 06:20] LABS: Albumin 3.7 g/dL (3.2-4.8); Alkaline Phosphatase 56 U/L (46-116); Anion Gap 8 (5-15); BUN/Creatinine Ratio 12.0 (10.0-20.0); Bilirubin, Total 0.4 mg/dL (0.2-1.0); Blood Urea Nitrogen 10 mg/dL (9-23); Calcium 9.5 mg/dL (8.7-10.4); Carbon Dioxide 27 mmol/L (20-31); Chloride 105 mmol/L (98-107); Potassium 4.0 mmol/L (3.5-5.1); Sodium 140 mmol/L (136-145); Total Protein 6.1 g/dL (5.7-8.2)
[2024-10-25 06:22] LABS: Alanine Aminotransferase 9 U/L (7-40); Glucose 112 mg/dL (74-106)
[2024-10-25] MEDS ORDERED: ROCURONIUM 10MG/ML 10ML VIAL IV ONE (12:24)
[2024-10-25] MEDS ORDERED: PROPOFOL 10 MG/ML 20 ML IV ONE (12:25)
[2024-10-25] MEDS ORDERED: KETOROLAC TROMETH 30 MG/ML 1ML VIAL IV ONE (12:26)
[2024-10-25] MEDS ORDERED: METOCLOPRAMIDE HCL 5MG/ml INJ 2ml VIAL IV ONE (12:27)
--- NOTE | 2024-10-25 15:44 | DVHPN2 ---
Progress Note - Dictate Date Seen: Oct 25, 2024 Has the PT tested + for MRSA If YES, has PT been informed?: No Medical Necessity Reason Pt with a Central, PICC or Fol: No Subjective E: no major events o/n. doing better. wants more food. vital signs Vital Sign Date Time Temp Pulse Resp B/P (MAP) Pulse Ox O2 Delivery O2 Flow Rate FiO2 10/25/24 13:00 97.6 89 17 123/84 (97) 96 97.6 10/25/24 08:12 Room Air* 0 21 Total Intake and Output 10/24/24 10/24/24 10/25/24 15:00 23:00 07:00 Intake Total 500 ml 836 ml Output Total 1000 ml Balance 500 ml -164 ml medications Current Medications Medications Dose Ordered Sig/Abilio Route Start Time Stop Time Status Last Admin Dose Admin Acetaminophen 650 mg Q6HP PRN PO 10/23/24 16:00 Acetaminophen/ Hydrocodone Bitart 1 tab Q4HP PRN PO 10/23/24 16:00 10/25/24 08:53 1 TAB Ondansetron HCl 4 mg Q4HP PRN IV 10/23/24 16:00 Morphine Sulfate 1 mg Q4HPRN PRN IV 10/23/24 16:00 10/23/24 19:54 1 MG Ceftriaxone Sodium 50 ml @ 100 mls/hr Q24H IV 10/24/24 15:00 10/25/24 14:45 100 MLS/HR Metronidazole 100 ml @ 100 mls/hr Q8H IV 10/24/24 07:00 10/25/24 14:45 100 MLS/HR Pantoprazole Sodium 40 mg DAILY IV 10/24/24 10:00 10/25/24 08:32 40 MG Dextrose/Sodium Chloride 1,000 ml @ 75 mls/hr [id number] IV 10/24/24 06:45 10/25/24 09:25 75 MLS/HR objective GEN: NAD RT INGUINAL: surgical dressings clean and dry. laboratory and microbiology Laboratory Tests 10/25/24 04:44 Test 10/25/24 04:44 Range/Units Serum Glucose 112 H 74-106 mg/dL Assessment/Plan A: 1. s/p RIH repair with mesh POD #1 doing well. P: 1. advance diet 2. prob dc home tomorrow. Dietary Evaluation Review Recommendations by RD: Dietary education by RD Comments: 1) Encourage optimal PO intake 2) Consider stool softener/laxative if constipation does not resolve 3) Advance to 60g CCHO diet when medically feasible 4) Advise patient to limit intake of added including sugar-sweetened beverages, candy, desserts, etc. Aim for a consistent intake of complex carbohydrates spread throughout day, paired with protien to promote glycemic control. 5) Refer to outpatient RD/[facility] for prediabetes edcation 6) Continue to monitor I&O, labs, and skin integrity Expected Outcomes/Goals: 1) appetite and labs to improve 2) GI symptoms to resolve 3) diet to advance 4) f/u in 3-5 days Plan discussed with: Patient JAN GUTIERREZ MD Oct 25, 2024 15:44
--- NOTE | 2024-10-25 16:41 | DVHPNRES ---
Progress Note Date Seen: Oct 25, 2024 Resident Creating Document: TRANISAK SWAN RESIDENT Has the PT tested + for MRSA If YES, has PT been informed?: No Medical Necessity Reason Pt with a Central, PICC or Fol: No Subjective Review of Systems This is a 49-year-old male with no significant past medical history of relevance, only polysubstance abuse. The patient presented to the ED with chief complaint of acute abdominal pain and right inguinal pain. The patient reports having a right inguinal hernia since seven months back but that was reducible and not painful at all. The patient states that recently one day before coming to the ED he started feeling that the right inguinal hernia was not able to come in back to the abdomen (not reducible) and was significantly tender compared to previous days. The patient also reported redness and slightly warm sensation to the touch around the location of the hernia. The patient denies fever/chills, chest pain, shortness of breath or any other associated symptoms. Initial labs showed a slight leukocytosis with unremarkable BNP. We ordered urinalysis, UDS, EKG and surgical consultation. We will admit the patient for further assessment and management of incarcerated right inguinal hernia. 10/24/24:He reports the pain has reduced with the analgesics 5/10. He denies nausea, diarrhea, vomit, fever or other complains. Vital signs and laboratories were within normal limits. Surgery is on board, they planned surgical repair with mesh. Patient is NPO and awaiting for the surgery. We will follow up the progress of this patient. 10/25/24: He was examined at bedside today. He underwent surgical repair of hernia with mesh POD. He appeared comfortable. He complains of pain 5 on 10 at the incision site, relieved with medications. No new complaints. Surgery on board; Advanced diet and possible discharge home tomorrow after surgery clearance. We will continue monitoring and managing. ROS: Constitutional: Denies weight loss, fever and chills. HEENT: Denies changes in vision and hearing. Respiratory: Denies shortness of breath and cough Cardiovascular: Denies chest discomfort or palpitations GI: Pain at the inguinal incision site post hernia repair. Musculoskeletal: Denies myalgias and joint pain Skin: Denies rash and pruritus. Neurological: Denies dizziness, headache, vision or hearing problems Objective vital signs Vital Sign Date Time Temp Pulse Resp B/P (MAP) Pulse Ox O2 Delivery O2 Flow Rate FiO2 10/25/24 13:00 97.6 89 17 123/84 (97) 96 97.6 10/25/24 08:12 Room Air* 0 21 Total Intake and Output 10/24/24 10/24/24 10/25/24 15:00 23:00 07:00 Intake Total 500 ml 836 ml Output Total 1000 ml Balance 500 ml -164 ml medications Current Medications Medications Dose Ordered Sig/Abilio Route Start Time Stop Time Status Last Admin Dose Admin Acetaminophen 650 mg Q6HP PRN PO 10/23/24 16:00 Acetaminophen/ Hydrocodone Bitart 1 tab Q4HP PRN PO 10/23/24 16:00 10/25/24 08:53 1 TAB Ondansetron HCl 4 mg Q4HP PRN IV 10/23/24 16:00 Morphine Sulfate 1 mg Q4HPRN PRN IV 10/23/24 16:00 10/23/24 19:54 1 MG Metronidazole 100 ml @ 100 mls/hr Q8H IV 10/24/24 07:00 10/25/24 14:45 100 MLS/HR Pantoprazole Sodium 40 mg DAILY IV 10/24/24 10:00 10/25/24 08:32 40 MG Dextrose/Sodium Chloride 1,000 ml @ 75 mls/hr [id number] IV 10/24/24 06:45 10/25/24 09:25 75 MLS/HR Cefazolin Sodium/ Dextrose 50 ml @ 50 mls/hr Q8HR IV 10/25/24 22:00 Examination General: Patient alert and oriented in person, place and time. Patient following commands. HEENT: Normocephalic, atraumatic, moist mucous membranes Respiratory/pulmonary: Clear lungs bilaterally, vesicular murmurs present in almost all lung taylor, no associated crackles or wheezes. Cardiovascular: Normal heart sounds S1 and S2 with no associated murmurs Abdomen: Right inguinal hernia repair site WNL, dressing is dry. Mild lymph node enlargement in the right inguinal region. Abdomen nondistended, there is no pain to palpation in any of the abdominal quadrants, no palpable masses. Extremities: There is no peripheral edema present at the lower extremities. Skin: No rashes or pruritus, there is no sacral edema present at this time. Neurological: Intact cranial nerves with no focal neurologic deficits laboratory and microbiology Laboratory Tests 10/25/24 04:44 Test 10/25/24 04:44 Range/Units Serum Glucose 112 H 74-106 mg/dL Problem List/Assessment/Plan Problem List/Assessment/Plan #Acute abdominal pain/right inguinal likely due to incarcerated right inguinal hernia #S/p RIH repair with mesh POD -CT of the abdomen and pelvis showed Right inguinal hernia containing a trapped segment of bowel measuring 9.7 x 6.1 cm , highly concerning for incarceration/strangulation. -Surgery on board. Diet advanced, we will be monitored and possible discharge tomorrow. -IV fluids D5W/0.45% at 75 cc/hour -Pain medications, [place], morphine p.r.n. -Lactic acid WNL -Chest x-ray WNL -NPO -Today, his labs are stable. Hemoglobin 12. We will continue monitoring. -Surgery: Right inguinal hernia with mesh repair. Surgery on board. Awaiting clearance for discharge. #Polysubstance abuse, ruled out -Toxicology screen negative #Chronic smoker -[place] smoking cessation -Counseling, provide resources for assist quitting. Goals of care discussed with patient at bedside for more than 25 minutes Code status: Full code PCP: not established. Patient will go to the discharge clinic. Plan discussed with Dr. Wallace Plan discussed with: Patient Dietary Evaluation Review Recommendations by RD: Dietary education by RD Comments: 1) Encourage optimal PO intake 2) Consider stool softener/laxative if constipation does not resolve 3) Advance to 60g CCHO diet when medically feasible 4) Advise patient to limit intake of added including sugar-sweetened beverages, candy, desserts, etc. Aim for a consistent intake of complex carbohydrates spread throughout day, paired with protien to promote glycemic control. 5) Refer to outpatient RD/[facility] for prediabetes edcation 6) Continue to monitor I&O, labs, and skin integrity Expected Outcomes/Goals: 1) appetite and labs to improve 2) GI symptoms to resolve 3) diet to advance 4) f/u in 3-5 days Date of Service: Oct 25, 2024 Billing Provider: BURTON CASPER MD Common Visit Codes: [id number] INP/OBS CARE(HIGH) ISAK CHUA RESIDENT Oct 25, 2024 16:41 BURTON CASPER MD Oct 28, 2024 01:49
[2024-10-25] MEDS: ceFAZolin 2 GM/D5W50ml 50 ML IV SCH (21:37)
[2024-10-26 00:48] VITALS: BP 116/82; PULSE 100; RESP 14; TEMP 98.1; O2SAT 98
[2024-10-26 05:00] VITALS: BP 113/82; PULSE 81; RESP 16; TEMP 98; O2SAT 97
[2024-10-26 05:42] LABS: Hematocrit 38.8 % (41.0-53.0); Hemoglobin 13.0 g/dL (13.5-17.5); Mean Corpuscular Hemoglobin 28.7 pg (28.0-32.0); Mean Corpuscular Volume 85.4 fL (80.0-100.0); Nucleated Red Blood Cells % 0.1 %
[2024-10-26 05:51] LABS: Chloride 103 mmol/L (98-107); Potassium 4.3 mmol/L (3.5-5.1); Sodium 140 mmol/L (136-145)
[2024-10-26 05:52] LABS: Anion Gap 7 (5-15); Calcium 9.7 mg/dL (8.7-10.4); Carbon Dioxide 30 mmol/L (20-31)
[2024-10-26 05:57] LABS: BUN/Creatinine Ratio 11.8 (10.0-20.0); Blood Urea Nitrogen 11 mg/dL (9-23); Glucose 93 mg/dL (74-106)
[2024-10-26 08:41] VITALS: BP 127/93; PULSE 86; RESP 18; TEMP 97.8; O2SAT 96
[2024-10-26 13:11] VITALS: BP 120/84; PULSE 79; RESP 19; TEMP 97.7; O2SAT 95
[2024-10-26] MEDS ORDERED: AUG875T PO (14:26)
--- NOTE | 2024-10-26 15:29 | DVHDSRES ---
Discharge Summary Date of Admission Resident Creating Document: MUNIR GIORDANO RESIDENT Oct 23, 2024 at 15:46 Date of Discharge: Oct 26, 2024 Admitting Diagnosis Acute abdominal pain/right inguinal likely due to incarcerated right inguinal hernia Labs/Diagnostic Data: Laboratory Results Test 10/26/24 04:55 10/25/24 04:44 10/23/24 16:10 10/23/24 14:28 White Blood Count 8.6 10^3/uL (4.4-10.8) Red Blood Count 4.54 10^6/uL (4.5-5.90) Hemoglobin 13.0 g/dL (13.5-17.5) Hematocrit 38.8 % (41.0-53.0) Mean Corpuscular Volume 85.4 fL (80.0-100.0) Mean Corpuscular Hemoglobin 28.7 pg (28.0-32.0) Mean Corpuscular Hemoglobin Concent 33.6 g/dL (32.0-36.0) Red Cell Distribution Width 15.3 % (11.8-14.3) Platelet Count 254 10^3/uL (140-450) Mean Platelet Volume 7.4 fL (6.9-10.8) Neutrophils (%) (Auto) 65.8 % (37.0-80.0) Lymphocytes (%) (Auto) 20.9 % (10.0-50.0) Monocytes (%) (Auto) 9.9 % (0.0-12.0) Eosinophils (%) (Auto) 3.1 % (0.0-7.0) Basophils (%) (Auto) 0.3 % (0.0-2.0) Neutrophils # (Auto) 5.7 10 ^3/uL (1.6-8.6) Lymphocytes # (Auto) 1.8 10 ^3/uL (0.4-5.4) Monocytes # (Auto) 0.9 10 ^3/uL (0-1.3) Eosinophils # (Auto) 0.3 10 ^3/uL (0-0.8) Basophils # (Auto) 0 10 ^3/uL (0-0.2) Nucleated Red Blood Cells 0.1 % Sodium Level 140 mmol/L (136-145) Potassium Level 4.3 mmol/L (3.5-5.1) Chloride Level 103 mmol/L (98-107) Carbon Dioxide Level 30 mmol/L (20-31) Anion Gap 7 (5-15) Blood Urea Nitrogen 11 mg/dL (9-23) Creatinine 0.93 mg/dL (0.700-1.30) Glomerular Filtration Rate Calc 99 mL/min (>90) BUN/Creatinine Ratio 11.8 (10.0-20.0) Serum Glucose 93 mg/dL (74-106) Calcium Level 9.7 mg/dL (8.7-10.4) Total Bilirubin 0.4 mg/dL (0.2-1.0) Aspartate Amino Transferase (AST) 22 U/L (13-40) Alanine Aminotransferase (ALT) 9 U/L (7-40) Alkaline Phosphatase 56 U/L (46-116) Total Protein 6.1 g/dL (5.7-8.2) Albumin 3.7 g/dL (3.2-4.8) Lactic Acid Level 1.4 mmol/L (0.4-2.0) Urine Color Yellow (Yellow) Urine Clarity Clear (Clear) Urine pH 5.5 (5.0-9.0) Urine Specific [place] 1.031 (1.001-1.035) Urine Protein Trace (Negative) Urine Ketones Trace (Negative) Urine Blood Negative /uL (Negative) Urine Nitrite Negative (Negative) Urine Bilirubin Negative (Negative) Urine Urobilinogen Normal mg/dL (Negative) Urine Leukocyte Esterase Negative /uL (Negative) Urine RBC 5 /hpf (0 - 3) Urine Microscopic WBC 2 /HPF (0-3) Urine Squamous Epithelial Cells None seen /hpf (<5) Urine Bacteria None seen /hpf (None Seen) Urine Hyaline Casts Few /lpf (0 - 2) Urine Mucus Few (None Seen) Urine Glucose Normal mg/dL (Normal) Urine Opiates Screen Neg (NEGATIVE) Urine Fentanyl Screen Neg (NEGATIVE) Urine Barbiturates Screen Neg (NEGATIVE) Urine Phencyclidine Screen Neg (NEGATIVE) Urine Amphetamines Screen Neg (NEGATIVE) Urine Benzodiazepines Screen Neg (NEGATIVE) Urine Cocaine Screen Neg (NEGATIVE) Urine Cannabinoids Screen Neg (NEGATIVE) Test 10/23/24 13:52 Prothrombin Time 10.3 sec (9.3-11.8) Prothrombin Time INR 0.97 (0.9-1.15) Activated Partial Thromboplast Time 29.5 SEC (24.5-34.5) Hemoglobin A1c 5.7 % A1C (<5.7) Direct Bilirubin < 0.1 mg/dL (<0.3) Triglycerides Level 64 mg/dL (< 150) Cholesterol Level 162 mg/dL (< 200) LDL Cholesterol 94 mg/dL (< 100) HDL Cholesterol 48 mg/dL (40-59) Other Laboratory Tests 10/26/24 04:55 Brief Hx & Hospital Course: This is a 49-year-old male with no significant past medical history of relevance, only polysubstance abuse. The patient presented to the ED with chief complaint of acute abdominal pain and right inguinal pain. The patient reports having a right inguinal hernia since seven months back but that was reducible and not painful at all. The patient states that recently one day before coming to the ED he started feeling that the right inguinal hernia was not able to come in back to the abdomen (not reducible) and was significantly tender compared to previous days. The patient also reported redness and slightly warm sensation to the touch around the location of the hernia. The patient denies fever/chills, chest pain, shortness of breath or any other associated symptoms. Initial labs showed a slight leukocytosis with unremarkable BNP. We ordered urinalysis, UDS, EKG and surgical consultation. We will admit the patient for further assessment and management of incarcerated right inguinal hernia. Brief history of hospitalization: Patient came in with acute abdominal pain/right inguinal likely due to incarcerated right inguinal hernia. He is day 1 status post right inguinal hernia repair with mesh. CT of the abdomen and pelvis showed right inguinal hernia containing a trapped segment of the bowel measuring 9.7 x 6.1 cm, highly concerning for incarceration and strangulation. Surgery was on board and diet is advanced. IV fluid D5 W/0.45% at 75 cc/hour was given. For his pain we gave him [place] and morphine PRN. Lactic acids are within normal level. We have shifted the patient from NPO to a full liquid diet. Since patient has a history of polysubstance abuse, we have counseled him over 15 minutes regarding side effects and of cessation. We have provided resources to assist quitting. Patient is also chronic smoker we have counseled him regarding cessation. Today the patient is stable for discharge. He is in full liquid diet and is able to tolerate well. He has had 2 bowel movements which is soft, without any blood. He has also passed flatus and is ambulatory. Patient has been counseled regarding continuing soft diet for 1 week and then to escalate as tolerated. His surgical site has been cleaned and we have counseled him regarding follow up with surgeon in 1 week's time. We are discharging him with Augmentin 875 mg twice a day for 5 days. We have also counseled him regarding Tylenol or ibuprofen for his pain as needed. Patient has communicated understanding and is being discharged. General: Patient alert and oriented in person, place and time. Patient following commands. HEENT: Normocephalic, atraumatic, moist mucous membranes Respiratory/pulmonary: Clear lungs bilaterally, vesicular murmurs present in almost all lung taylor, no associated crackles or wheezes. Cardiovascular: Normal heart sounds S1 and S2 with no associated murmurs Abdomen: Right inguinal hernia repair site WNL, dressing is dry. Mild lymph node enlargement in the right inguinal region. Abdomen nondistended, there is no pain to palpation in any of the abdominal quadrants, no palpable masses, bowel sounds heard in all quadrants Extremities: There is no peripheral edema present at the lower extremities. Skin: No rashes or pruritus, there is no sacral edema present at this time. Neurological: Intact cranial nerves with no focal neurologic deficits Discharge instructions: Augmentin 875 mg twice a day for 5 days Follow up with surgeon next week Follow up at discharge clinic within a week Follow up with PCP Take Tylenol or ibuprofen for pain as needed Continue soft diet for 1 week and then escalate as tolerated Operations or Procedures Abd/pelvis CT IMPRESSION: Limited evaluation without contrast. Right inguinal hernia containing a trapped segment of bowel measuring 9.7 x 6.1 cm , highly concerning for incarceration/strangulation. Recommend surgical consultation for further evaluation and management. Free fluid within the right abdomen/paracolic gutter, likely reactive to the secondary right inguinal hernia. Other findings as described. CHEST RADIOGRAPH IMPRESSION: No acute disease. Condition at Discharge: Stable Final Diagnosis/Problems List #Acute abdominal pain/right inguinal likely due to incarcerated right inguinal hernia #S/p RIH repair with mesh POD #Polysubstance abuse #Chronic smoker Discharge Disposition: Home Discharge Instruct/Medications Diet: Consistent carbohydrate, Cardiac 2g Na,low cholest Activity: No Restrictions, As Tolerated Follow Up/Referral: followup with PCP followup with surgeon outpatient in 1 week followup in discharge clinic in a week Medications: augmentin 875mg twice daily for 5 days Scheduled Amoxicillin & Pot Clavulanate (Augmentin Tablet), 875 MG PO BID Discharge Statement: "Patient was advised to return to the ER or call 911 if any headaches, dizziness, shortness of breath, chest pain, abdominal pain, bleeding, fevers, or worsening of medical condition. Patient was counseled about treatment plan, medications, possible side effects, patientverbalized understanding. All questions were answered to the best of my ability. This discharge took greater then 30 minutes in planning, reviewing documentation, counseling the patient, and discussing with other team members." ASSESSMENT ASSESSMENT Assessment #Acute abdominal pain/right inguinal likely due to incarcerated right inguinal hernia #Polysubstance abuse #Chronic smoker Date of Service: Oct 26, 2024 Billing Provider: BURTON CASPER MD Common Visit Codes: 80227-VAZ/OBS DISCH DAY >30min MUNIR GIORDANO Oct 26, 2024 15:29 BURTON CASPER MD Oct 28, 2024 21:54
== END 2024-10-26 15:20 | disposition home or self-care (01) | DRG 228 ==
LOC: ER 11:26 → OVERFLOW 15:46 → CENTRAL 18:24
PROVIDERS: ADMIT Student in an Organized Health Care Education/Training Program; ATTEND Student in an Organized Health Care Education/Training Program
PROC: 0YU50JZ Supplement Right Inguinal Region with Synthetic Substitute, Open Approach (ICD-10-PCS; principal; 2024-10-24 12:42)
DX: K40.30 Unilateral inguinal hernia, with obstruction, without gangrene, not specified as recurrent (principal); R71.0 Precipitous drop in hematocrit; F17.210 Nicotine dependence, cigarettes, uncomplicated; K46.0 Unspecified abdominal hernia with obstruction, without gangrene; R73.03 Prediabetes; Z79.899 Other long term (current) drug therapy
CPT/HCPCS: 36415; 71045; 74176; 80048; 80053; 80061; 80076; 80307; 81001; 83036; 83605; 85025; 85610; 85730; 96365; 96375; G0378; J0131; J0690; J1885; J2250; J2405; J2470; J2704; J3490